=== PATIENT | male | born 1935 | race Caucasian/White ===

== ENCOUNTER 2021-11-27 13:00 | Outpatient (RCR) | payer MEDICARE | END 2021-11-28 | LOC: PT 13:00 | PROVIDERS: ATTEND Orthopaedic Surgery | DX: Z96.651 Presence of right artificial knee joint (principal) | CPT/HCPCS: 97139 ==

== ENCOUNTER 2021-12-27 13:00 | Outpatient (RCR) | payer MEDICARE | END 2021-12-28 | LOC: PT 13:00 | PROVIDERS: ATTEND Orthopaedic Surgery | DX: Z96.651 Presence of right artificial knee joint (principal) | CPT/HCPCS: 97139 ==

== ENCOUNTER 2022-01-08 11:00 | Outpatient (RCR) | payer MEDICARE | END 2022-01-28 | LOC: PT 11:00 | PROVIDERS: ATTEND Orthopaedic Surgery | DX: Z96.651 Presence of right artificial knee joint (principal) ==